=== PATIENT | male | born 1995 | race Caucasian/White ===

== ENCOUNTER 2017-07-12 16:42 | Emergency (ER) | payer SELFPAY ==
[2017-07-12 16:48] VITALS: BP 132/68; PULSE 79; RESP 18; TEMP 97.6; O2SAT 100
--- NOTE | 2017-07-12 17:18 | PD ---
HPI Chief Complaint: Musculoskeletal Complaint Time Seen by Provider: 17:13 Travel History International Travel<30 days: No Contact w/Intl Traveler<30days: No Traveled to known affect area: No History of Present Illness HPI 21-year-old male presents emergency department with right upper thoracic pain, radiating to the right shoulder and upper back, for the last 3 days. Patient states he participated in a "[place] ninja style" obstacle course on Wednesday. 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 Patient has been taking ibuprofen without much improvement. He states it hurts to twist or take a deep breath or cough. He denies significant shortness of breath, or hemoptysis. He denies numbness and tingling of the upper arm. He denies neck pain. Pain is localized to the lateral upper thoracic region under the axilla. Pain is 9 out of 10. He has no known drug allergies. PFSH Social History Alcohol Use: Yes Tobacco Use: Yes Substance Use: Yes Allergies-Medications (Allergen,Severity, Reaction): Coded Allergies: No Known Allergies (Unverified , 07/12/17) Reported Meds & Prescriptions Reported Meds & Active Scripts Active Flexeril (Cyclobenzaprine HCl) 10 Mg Tab 10 Mg PO TID Ibuprofen 800 Mg Tab 800 Mg PO Q8H PRN Review of Systems Except as stated in HPI: all other systems reviewed are Neg General / Constitutional: No: Fever Eyes: No: Visual changes HENT: No: Headaches Cardiovascular: No: Chest Pain or Discomfort Respiratory: Positive: Pleuritic Pain, No: Cough, Shortness of Breath, Wheezing , Sneezing, Orthopnea, Hemoptysis, Night Sweats Gastrointestinal: No: Abdominal Pain Genitourinary: No: Dysuria Musculoskeletal: Positive: Myalgias, Arthralgias, Limited ROM, Pain Skin: No Rash Neurologic: No: Weakness Psychiatric: No: Depression Endocrine: No: Polydipsia Hematologic/Lymphatic: No: Easy Bruising Physical Exam Narrative GENERAL: Thin male in moderate distress per SKIN: Warm and dry. Normal color. Normal turgor. No rash. No bruising. No subcutaneous emphysema. HEAD: Atraumatic. Normocephalic. EYES: Pupils equal and round. No scleral icterus. No injection or drainage. ENT: No nasal bleeding or discharge. Mucous membranes pink and moist. Pharynx is clear. Airways patent. NECK: Trachea midline. Supple and nontender CARDIOVASCULAR: Regular rate and rhythm. RESPIRATORY: No accessory muscle use. Clear to auscultation. Breath sounds equal bilaterally. No crepitus. Patient has generalized tenderness along the right upper lateral posterior thoracic wall, without specific point tenderness. GASTROINTESTINAL: Abdomen soft, non-tender, nondistended. Hepatic and splenic margins not palpable. MUSCULOSKELETAL: Extremities without clubbing, cyanosis, or edema. No obvious deformities. Decreased range of motion right shoulder secondary to pain without significant loss of function. Neurovascular exam is normal. NEUROLOGICAL: Awake and alert. No obvious cranial nerve deficits. Motor grossly within normal limits. Five out of 5 muscle strength in the arms and legs. Normal speech. PSYCHIATRIC: Appropriate mood and affect; insight and judgment normal. Data Data Last Documented VS Vital Signs Date Time Temp Pulse Resp B/P (MAP) Pulse Ox O2 Delivery O2 Flow Rate FiO2 07/12/17 16:48 97.6 79 18 132/68 (89) 100 Orders Orders Ketorolac Inj (Toradol Inj) (07/12/17 17:30) Orphenadrine Inj (Norflex Inj) (07/12/17 17:30) Ribs, Uni (W/Exp Cxr-Min 3vw) (07/12/17 17:19) Ed Discharge Order (07/12/17 18:16) [facility] Medical Decision Making Medical Screen Exam Complete: Yes Emergency Medical Condition: Yes Differential Diagnosis Thoracic wall strain. Rib fracture. Pneumothorax. Narrative Course Patient's vital signs are stable with a pulse rate of 74 an O2 sat of 100%. Patient is given Toradol 60 mg IM as well as Norflex 60 mg IM X-rays of the chest and right ribs are ordered X-rays are unremarkable for fracture or dislocation per radiologist. Patient will be given ibuprofen 800 mg 3 times daily with food #60. Patient also will be given Flexeril 10 mg up to 3 times daily for muscle spasm # 15. Patient can take extra strength Tylenol 2 tabs every 6 hours as well for pain. Patient is to rest, use heat, and ice, with 2 days off work recommended. Diagnosis Primary Impression: Superficial injury of left front wall of thorax Qualified Codes: S20.302A - Unspecified superficial injuries of left front wall of thorax, initial encounter Patient Instructions: General Instructions, Rib Contusion (ED), Thoracic Pain ( ED) Additional Instructions: Patient's vital signs are stable with a pulse rate of 74 an O2 sat of 100%. Patient is given Toradol 60 mg IM as well as Norflex 60 mg IM X-rays of the chest and right ribs are ordered X-rays are unremarkable for fracture or dislocation per radiologist. Patient will be given ibuprofen 800 mg 3 times daily with food #60. Patient also will be given Flexeril 10 mg up to 3 times daily for muscle spasm # 15. Patient can take extra strength Tylenol 2 tabs every 6 hours as well for pain. Patient is to rest, use heat, and ice, with 2 days off work recommended. Med/Other Pt SpecificInfo: Prescription(s) given Scripts Cyclobenzaprine (Flexeril) 10 Mg Tab 10 MG PO TID for Muscle Spasm, #15 TAB 0 Refills Prov: Thompson Gamboa MD 07/12/17 Ibuprofen (Ibuprofen) 800 Mg Tab 800 MG PO Q8H Y for Pain/Inflammation, #60 TAB 0 Refills Prov: Thompson Gamboa MD 07/12/17 Disposition: 01 DISCHARGE HOME Condition: Stable Abdoulaye Harmon Jul 12, 2017 17:18
[2017-07-12] MEDS ORDERED: ORPHENADRINE INJ 60 MG/2 ML AMP IM ONE (17:30)
[2017-07-12] MEDS ORDERED: KETOROLAC TROMETHAMINE 60 MG/2 ML (IM) VIAL IM ONE (17:30)
[2017-07-12] MEDS ORDERED: CYCL10TA PO (18:13)
[2017-07-12] MEDS ORDERED: IBUP1TAB7 PO (18:13)
--- NOTE | 2017-07-12 18:15 | RADRPT ---
EXAM DATE/TIME: 07/12/2017 17:36 [facility] COMPARISON: No previous studies available for comparison. INDICATIONS : Right axillary rib pain. No known injury. MEDICAL HISTORY : None. SURGICAL HISTORY : None. ENCOUNTER: Initial ACUITY: 2 days PAIN SCORE: 7/10 LOCATION: Right ribs FINDINGS: Multiple views of the right ribs were performed. There is no evidence of displaced fracture. No alda tructive lesions or areas of periosteal thickening are seen. Expiratory view of the chest is negativ e for pneumothorax. The mediastinal structures are midline. CONCLUSION: No fracture. Lungs are clear. Christophe Leonard MD on July 12, 2017 at 18:12 Board Certified Radiologist. This report was verified electronically.
== END 2017-07-12 19:07 | disposition home or self-care (01) ==
LOC: NEPK 16:42
DX: S20.302A Unspecified superficial injuries of left front wall of thorax, initial encounter (principal); X50.0XXA Overexertion from strenuous movement or load, initial encounter; Y93.39 Activity, other involving climbing, rappelling and jumping off; Z72.0 Tobacco use
CPT/HCPCS: 71101; 96372; 99283; J1885; J2360